=== PATIENT | male | born 1940 | race Caucasian/White ===

== ENCOUNTER → 2021-04-30 15:47 | Outpatient (BNVA) | payer MEDICARE, OTHER, SELFPAY | PROVIDERS: PCP Family Medicine; Visit Provider Urology | DX: N40.0 Benign prostatic hyperplasia without lower urinary tract symptoms (principal); R31.0 Gross hematuria; N40.1 Benign prostatic hyperplasia with lower urinary tract symptoms; R97.20 Elevated prostate specific antigen [PSA] | CPT/HCPCS: 81003; 87086; 88112 ==

== ENCOUNTER 2021-07-17 12:12 | Outpatient (CLI) | payer MEDICARE, OTHER, SELFPAY ==
--- NOTE | 2021-07-17 12:45 | USCV_ITS ---
Robert Castillo Age: 81 Gender: M : 1940 Exam Date: 07/17/2021 12:08 Ordering Phys: Jaime Londono DO Technologist: Benigno Street Contact Officer Exam Location: [facility] – [place]_ Indication: pain right foot RIGHT LEFT Brachial 153.00 mmHg Brachial 148.00 mmHg Pressure (mmHg) Waveform Pressure (mmHg) Waveform 202.00 [employer] 197.00 205.00 DPA 201.00 1.34 Ankle/Brachial Index 1.31 138.00 Pre-Exercise Toe Pressure 190.00 0.90 Pre-Exercise Toe/Brachial Index 1.24 FINDINGS Normal resting ABIs bilaterally Normal resting TBIs bilaterally CONCLUSIONS No significant arterial obstruction, based on the above findings Dr Malou Downey MD FACC (Electronically Signed) Final Date: 18 July 2021 17:30 S
== END 2021-07-17 12:13 | disposition home or self-care (01) ==
LOC: RAD 12:17
PROVIDERS: PCP Family Medicine; Visit Provider Family Medicine
DX: M79.671 Pain in right foot (principal)
CPT/HCPCS: 93922

== ENCOUNTER 2024-10-21 08:09 | Outpatient (CLI) | payer MEDICARE, OTHER, SELFPAY ==
--- NOTE | 2024-10-21 08:25 | USCV_ITS ---
Robert Castillo Age: 84 Gender: M : 1940 Exam Date: 10/21/2024 08:45 Ordering Phys: Jaime Londono DO Technologist: LOGAN Exam Location: 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 Mild atheromatous disease Normal proximal iliac arteries Mike Torres MD (Electronically Signed) Final Date: 24 October 2024 14:58 S
== END 2024-10-21 08:10 | disposition home or self-care (01) ==
PROVIDERS: PCP Family Medicine; Visit Provider Family Medicine
DX: I77.811 Abdominal aortic ectasia (principal); I70.0 Atherosclerosis of aorta; R93.89 Abnormal findings on diagnostic imaging of other specified body structures
CPT/HCPCS: 76706